=== PATIENT | female | born 1970 | race Caucasian/White ===

== ENCOUNTER 2017-05-21 10:05 | Emergency (ER) | payer OTHER ==
[~2017-05-21] VITALS: Ht 157.5 cm; Wt 58.1 kg
[2017-05-21] MEDS ORDERED: LEVO50TA8 PO (10:12)
[2017-05-21] MEDS: TDAP DIPH,PERTUSS,TET VAC/PF 0.5 ML DISP.SYRIN IM ONE (10:30)
[2017-05-21] MEDS ORDERED: TDAP DIPH,PERTUSS,TET VAC/PF 0.5 ML DISP.SYRIN IM ONE (10:37)
--- NOTE | 2017-05-21 10:41 | NUR ---
Patient discharged to home in stable conditon. Written and verbal after care instructions given. Patient verbalizes understanding of instructions.pt with so. pt walks in steady gait, deneis any headache or dizziness
== END 2017-05-21 10:42 | disposition home or self-care (01) ==
LOC: ER 10:05
DX: S01.81XA Laceration without foreign body of other part of head, initial encounter (principal); W22.8XXA Striking against or struck by other objects, initial encounter; Y93.01 Activity, walking, marching and hiking; Y92.9 Unspecified place or not applicable; Y99.9 Unspecified external cause status
CPT/HCPCS: 12011; 90471; 90715; 99283; A4663

== ENCOUNTER 2018-04-03 15:54 | Emergency (ER) | payer OTHER ==
[~2018-04-03 15:54] MED LIST: LEVO50TA8 PO
--- NOTE | 2018-04-03 16:02 | NUR ---
Pt not found in ER waiting room, per ER admitting pt decided not to be seen and left.
== END 2018-04-03 16:04 | disposition left against medical advice (07) ==
LOC: ER 15:55
DX: Z53.21 Procedure and treatment not carried out due to patient leaving prior to being seen by health care provider (principal)